=== PATIENT | male | born 1985 | race Hispanic/Latino ===

== ENCOUNTER 2022-07-28 10:11 | Emergency (ER) | payer SELFPAY ==
--- NOTE | ~2022-07-28 | XR_ITS ---
EXAMINATION: XR chest 2V DATE: 07/28/2022 10:47 INDICATION: Cough and shortness of breath TECHNIQUE: PA and lateral views of the chest are obtained. COMPARISON: None available FINDINGS: The lungs are free of acute opacities. No pleural effusion or pneumothorax. The cardiomedia stinal silhouette is normal. The visualized bones and soft tissues are unremarkable. IMPRESSION: 1. No acute cardiopulmonary abnormality. Reviewed, dictated and finalized at location A.
--- NOTE | 2022-07-28 10:25 | ED.GENADULT ---
HPI - General Adult General Chief complaint: Upper Respiratory Infection Stated complaint: SOB,Chest Pain Time Seen by Provider: 07/28/22 10:26 Source: patient, family and RN notes reviewed Mode of arrival: ambulatory Limitations: no limitations History of Present Illness HPI narrative: 36-year-old male presents to the [facility] with complaints of generalized body aches, fever, chills, nasal congestion and cough. Reports chest congestion and discomfort with deep breathing and coughing. Had taken some pain medication. States it was worse last night. Symptoms just started last night. Denies taking temperature. 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 Would prefer to use . Related Data Allergies Allergy/AdvReac Type Severity Reaction Status Date / Time No Known Allergies Allergy Verified 07/28/22 10:37 Review of Systems Review of Systems: All systems reviewed & are unremarkable except as noted in HPI and below Constitutional: Constitutional: Reports as per HPI, Denies chills, Reports fatigue and Denies fever(s) Eyes: Eyes: Reports no additional eye complaints ENT: Reports as per HPI and Reports nasal congestion Cardiovascular: Cardiovascular: Reports no additional cardiovascular complaints Respiratory: Respiratory: Reports as per HPI, Reports chest congestion, Reports cough and Reports dyspnea Gastrointestinal: Gastrointestinal: Reports no additional gastrointestinal complaints Musculoskeletal: Musculoskeletal: Reports no additional musculoskeletal complaints Integumentary/Breasts: Skin/Breast: Reports system reviewed and no additional complaints, except as docu Neurologic: Reports system reviewed and no additional complaints, except as documented Psychiatric: Psychiatric: Reports no additional psychiatric complaints Allergic/Immunologic: Allergic/Immunologic: Reports no additional allergic/immunologic complaints PMFSH Past Medical History Medical History (Updated 07/28/22 @ 20:22 by Zaynab Strickland APRN) No significant medical problems Surgical History Surgical History (Updated 07/28/22 @ 20:22 by Zaynab Strickland APRN) No pertinent past surgical history Social History Social History (Updated 07/28/22 @ 20:22 by Zaynab Strickland APRN) Living arrangements: with family Gender identity (if verbalized by the patient): Male Comments At the time of my signature, I reviewed and agree with the nursing past medical, surgical, social, and family history. There is no relevant family history pertinent to the patient complaint. Exam Const: General: no acute distress, alert, ill appearing acutely (Mild) and well nourished Nutritional Appearance: well nourished Orientation/consciousness: patient oriented x3 Limitations: no limitations HENMT: Head: normal to inspection Ears: external ears normal, TM's normal bilaterally and EAC's normal Face/Nose/Sinus: Normal external nose present Face and sinus: normal facial exam Throat: posterior oropharynx normal and uvula midline Eyes: General: appearance normal, both eyes and all related structures Pupils: Equal, round and reactive pupils present Neck: Neck: normal visual inspection, no lymphadenopathy and no meningeal signs Chest: Chest palpation & inspection: normal inspection of the chest Resp: Effort & Inspection: normal respiratory effort and no use of accessory muscles Auscultation: clear to auscultation bilaterally, no crackles, no rales, no rhonchi and no wheezes Cardio: Rate: regular rate Rhythm: regular rhythm Back/Spine/Pelvis: Cervical Spine: normal cervical lordosis Thoracic/Lumbar Spine: thoracic and lumbar spine normal to inspection Skin: General skin exam: normal color Rashes: no rashes Wounds: no wounds Neuro: General: patient oriented x3, moves all extremities, no meningeal signs and no focal motor deficits Cranial nerves: Yes Equal, round and reactive pupils present Speech: normal speech Ga
[2022-07-28 10:26] VITALS: BP 130/89; PULSE 85; RESP 16; TEMP 36.7; O2SAT 100
[2022-07-28 20:31] LABS: SARS-CoV-2 RNA PCR Negative
== END 2022-07-28 11:07 | disposition home or self-care (01) ==
PROVIDERS: Emergency Provider Nurse Practitioner
DX: B34.9 Viral infection, unspecified (principal); Z20.822 Contact with and (suspected) exposure to COVID-19
CPT/HCPCS: 71046; 87426; 87804; 99213; C9803; G0463; U0003; U0005

== ENCOUNTER 2022-08-03 04:36 | Emergency (ER) | payer SELFPAY ==
[2022-08-03] VITALS (14 sets, daily range): BP systolic 100–144; BP diastolic 74–104; PULSE 75–113; RESP 12–23; TEMP 37.4–37.7; O2SAT 97–100
--- NOTE | ~2022-08-03 | XR_ITS ---
EXAMINATION: XR chest 1V portable DATE: 08/03/2022 06:03 INDICATION: Dyspnea TECHNIQUE: frontal view of the chest was obtained. COMPARISON: Chest radiograph dated 07/28/2022 FINDINGS: The lungs remain clear with no focal airspace opacities, pulmonary edema, pleural effusion or pneumot horax. The cardiomediastinal silhouette is normal. Visualized bones and soft tissues are unremarkable . IMPRESSION: 1. No acute cardiopulmonary disease. Reviewed, dictated and finalized at location A.
--- NOTE | 2022-08-03 05:40 | ECG_ITS ---
Measurements Intervals [place] Rate: 93 P: 13 ME: 170 QRS: 60 QRSD: 101 T: 30 QT: 342 QTc: 427 Interpretive Statements SINUS RHYTHM NO PREVIOUS ECG AVAILABLE FOR COMPARISON Electronically Signed On 08-03-2022 8:56:42 CDT by Daysi Johnston M.D.
[2022-08-03 05:58] LABS: Glucose Point of Care 120 mg/dl (65-105)
[2022-08-03] MEDS: SODIUM CHLORIDE 0.9% IV 2,000 ML 999 ML IV CONT (06:03)
[2022-08-03] MEDS: ACETAMINOPHEN 500 MG TABLET 1000 MG PO (06:04)
[2022-08-03] MEDS: IBUPROFEN 400 MG TABLET 800 MG PO (06:04)
[2022-08-03 06:07] LABS: Basophils Absolute Auto 0.1 K/mm3 (0.0-0.1); Basophils Percent Auto 0.7 % (0.2-1.2); Eosinophils Percent Auto 0.2 % (0-4.4); Hematocrit 45.3 % (42.0-52.0); Hemoglobin 15.5 g/dL (14.0-18.0); Immature Granulocyte Absolute 0.05 K/mm3 (0.00-0.031); Immature Granulocyte Percent A 0.4 % (0-0.5); Lymphocytes Absolute Auto 1.72 K/mm3 (0.9-3.2); Lymphocytes Percent Auto 14.3 % (18.3-44.2); Mean Corpuscular HGB Conc 34.2 g/dl (32-36); Mean Corpuscular Hemoglobin 31.9 pg (26-34); Mean Corpuscular Volume 93.2 fl (80-100); Mean Platelet Volume 10.1 fl (7.4-10.4); Monocytes Absolute Auto 0.6 K/mm3 (0.1-0.6); Monocytes Percent Auto 5.3 % (2.6-8.5); Neutrophils Absolute Auto 9.5 K/mm3 (1.3-6.7); Neutrophils Percent Auto 79.1 % (45.5-73.1); Platelet Count Result 326 k/mm3 (150-375); Red Blood Count 4.86 M/mm3 (4.6-6.20); Red Cell Distribution Width 12.7 % (11.5-14.5)
--- NOTE | 2022-08-03 06:08 | PC.NURSE ---
Patient describing many symptoms and stating he was taking percocets that were not his and was taking them every day for 6 months and recently stopped them. Stratus used for interpretation. ERP at bedside.
[2022-08-03 06:17] LABS: Anion Gap 14 mmol/L (8-16); Blood Urea Nitrogen 9 mg/dL (9-20); Calcium 9.3 mg/dL (8.4-10.2); Carbon Dioxide 24 mmol/L (22-30); Chloride 106 mmol/L (98-107); Estimated CRCL calculation 104 ml/min; Estimated Glomerular Filt Rate > 60; Glucose 116 mg/dL (65-110); Magnesium 2.4 mg/dL (1.6-2.3); Potassium 3.6 mmol/L (3.4-5.0); Sodium 144 mmol/L (137-145)
--- NOTE | 2022-08-03 06:17 | ED.GENADULT ---
HPI - General Adult General Chief complaint: Unspecified Stated complaint: Illness Time Seen by Provider: 08/03/22 05:39 History of Present Illness HPI narrative: This is a 36-year-old male presenting to ED with a chief complaint of feeling unwell for the last week. 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 Patient states that for the last 6 months he has been taking multiple Percocets per day. Over the weekend he watched show and found out that taking Percocets every day is bad for him so he tried to stop. Then he started to develop nausea, vomiting, runny nose, muscle aches and generally feeling unwell. This is continued throughout the week and he was getting so desperate that he had attempted to use some cocaine to feel better. The cocaine did not make him feel better and now he is even more anxious and he has a chest pain that he describes as a tightness over the center of his chest that is nonradiating and constant. The patient would like help with his substance use disorder. Related Data Allergies Allergy/AdvReac Type Severity Reaction Status Date / Time No Known Allergies Allergy Verified 08/03/22 04:45 Review of Systems Review of Systems: CONSTITUTIONAL: Denies night sweats. EYES: No eye pain ENT: Denies rhinorrhea CARDIOVASCULAR: Denies palpitations RESPIRATORY: Denies hemoptysis GASTROINTESTINAL: Denies hematemesis GENITOURINARY: Denies hematuria. SKIN: Denies rash MUSCULOSKELETAL: Denies myalgia. NEUROLOGIC: Denies weakness. PSYCHIATRIC: Denies delusions PMFSH Past Medical History Medical History (Updated 08/03/22 @ 06:23 by Abdirashid Mccauley MD) No significant medical problems Opiate dependence Surgical History Surgical History (Updated 07/28/22 @ 20:22 by Zaynab Strickland APRN) No pertinent past surgical history Social History Social History Gender identity (if verbalized by the patient): Male Exam Narrative: APPEARANCE: Patient appears anxious Head atraumatic. EYES: PERRLA/EOMI, NOSE: Normal no drainage, rhinorrhea NECK: Supple, Trachea midline RESPIRATORY: CTAB, No increased work of breathing. CARDIOVASCULAR: S1S2 appreciated, tachycardic ABDOMINAL: Soft, nontender, nondistended, MUSCULOSKELETAl: No obvious deformities NEURO: Alert. Moving 4/4 extremities SKIN:: Warm, dry. Normal color PSYCHIATRIC: Normal affect Course Vital Signs Vital signs: Vital Signs Temperature 37.7 C H 08/03/22 04:40 Pulse Rate 113 H 08/03/22 04:40 Respiratory Rate 20 08/03/22 04:40 Blood Pressure 140/103 H 08/03/22 04:40 Pulse Oximetry 99 08/03/22 04:40 Oxygen Delivery Room Air 08/03/22 04:40 Temperature 37.4 C 08/03/22 05:35 Pulse Rate 99 08/03/22 07:32 Respiratory Rate 16 08/03/22 07:32 Blood Pressure 141/93 H 08/03/22 07:32 Pulse Oximetry 100 08/03/22 06:31 Oxygen Delivery Room Air 08/03/22 04:40 Medical Decision Making MDM Narrative Medical decision making narrative: this is a 36-year-old male presenting ED after a week of feeling unwell. Patient has been taking Percocet daily for 6 months and is now trying to stop. His symptoms are classic of opiate withdrawal. Before he came today he used some cocaine to feel better and now is having chest discomfort and increased anxiety. Patient will be given 4 mg of buprenorphine for his opiate use withdrawal. He will be given Ativan for his cocaine chest pain / anxiety. Basic lab work including troponins and EKG and chest x-ray have been ordered. Patient will be given 2 L of fluid. Chest x-rays interpreted by myself was no acute cardiopulmonary process. EKG interpretation: Rhythm [sinus], Rate 93, [place] -[normal], [place] -[normal], QRS [narrow], QTC [normal], T waves -[negative for concerning inversions], ST Segments - [Negative for concerning elevations] Final interpretations: [Normal Sinus Rhythm] Patient
[2022-08-03] MEDS: LORazepam INJ (*CRX) 2 MG/ML VIAL 1 MG IV PUSH (06:26)
[2022-08-03] MEDS: BUPRENORPHINE HCL (*CRX) 2 MG SUBLINGUAL TABLET 4 MG PO ×2 (06:33→08:09)
[2022-08-03 06:39] LABS: Influenza A QL RT-PCR Negative (Negative); Influenza B QL RT-PCR Negative (Negative); SARS-CoV-2 RNA PCR Negative
[2022-08-03 06:52] LABS: Troponin I < 0.012 ng/mL (0.000-0.034)
--- NOTE | 2022-08-03 09:08 | PC.NURSE ---
0700 Assumed pt care from Rozina Johnson RN
[2022-08-03 09:34] LABS: Troponin I < 0.012 ng/mL (0.000-0.034)
== END 2022-08-03 10:25 | disposition home or self-care (01) ==
PROVIDERS: Emergency Medicine; Emergency Provider Emergency Medicine
DX: F11.23 Opioid dependence with withdrawal (principal); F14.90 Cocaine use, unspecified, uncomplicated; R11.2 Nausea with vomiting, unspecified; Z20.822 Contact with and (suspected) exposure to COVID-19
CPT/HCPCS: 36415; 71045; 80048; 82948; 83735; 84484; 85025; 87502; 93005; 96361; 96374; 99284; A9270; C9803; J2060; J7030; U0003; U0005